=== PATIENT | female | born 1990 | race Hispanic/Latino ===

== ENCOUNTER 2021-09-13 07:30 | Emergency (ER) | payer OTHER ==
[~2021-09-13] VITALS: Ht 162.6 cm; Wt 81.0 kg
[2021-09-13] MEDS ORDERED: LIDODERM1 EACH TOP (08:24)
== END 2021-09-13 08:34 | disposition home or self-care (01) ==
LOC: ED 07:30
DX: S33.6XXA Sprain of sacroiliac joint, initial encounter (principal); X58.XXXA Exposure to other specified factors, initial encounter
CPT/HCPCS: 81001; 84703; 99283; A9270